=== PATIENT | male | born 1965 | race Caucasian/White ===

== ENCOUNTER 2018-01-09 13:35 | Observation (INO) ==
[2018-01-09] MEDS ORDERED: Labetalol HCl Inj 100 MG/20 ML Vial IV.PUSH ONE (14:12)
--- NOTE | 2018-01-09 14:14 | ED ---
HPI General Chief complaint: Dizziness Stated complaint: Hypertension Time Seen by Provider: 01/09/18 14:03 History of Present Illness HPI narrative: 52-year-old male is brought to the ED by EMS for evaluation of dizziness and elevated blood pressure. Patient states about 2 hours ago he was at home and had a random sharp pain in his right mid abdomen. States this pain lasted for only 1-2 seconds and resolved. States that immediately after the pain he started having dizziness. States that he feels lightheaded. States that he called EMS due to this lightheadedness and when they came to pick him up his blood pressure was noted to be 200s over 100s. States that he has had this happen to him once in the past many years ago. States that he has been told he has high blood pressure however does not follow-up with doctors and does not take anything for his blood pressure. He denies any headache, vision changes, blurred vision, numbness or tingling, weakness, chest pain, shortness of breath, nausea, vomiting. No other complaints. Related Data Home Medications Medication Instructions Recorded Confirmed No Known Home Medications 01/09/18 01/09/18 Allergies Allergy/AdvReac Type Severity Reaction Status Date / Time No Known Allergies Allergy Verified 01/09/18 14:08 Review of Systems ROS: all other systems reviewed are negative PMFSH Social History Social History Substance History: Active Abuse Second Hand Smoke Exposure: Yes Smoking Status: Current every day smoker Tobacco Type: Cigarettes How Often Do You Have a Drink Containing Alcohol: 4 or more times a week Recent Travel in [facility] within the Last 8 Weeks: No Recent Out of Country Travel within the Last 8 Weeks: No Substance Abuse Detail Marijuana: Substance Use Status: Active Route Used Substance Abuse: Inhalation Immunization History Tetanus Immunization: >5 Years Exam Narrative Exam Narrative: GENERAL: Well-nourished and well-developed pleasant patient in no acute distress who is nontoxic appearing. SKIN: Warm and dry. HEAD: Normocephalic and atraumatic. EYES: No injection, drainage, or hyphema noted. PERRLA. EOMI. ENT: No nasal drainage noted. Oropharynx is clear. NECK: Supple and the trachea is midline. CARDIOVASCULAR: Regular rate and rhythm. RESPIRATORY: Breath sounds are equal bilaterally with no accessory muscle use, wheezing, rhonchi, or crackles. GASTROINTESTINAL: Abdomen is soft, non-tender, and nondistended. MUSCULOSKELETAL: No obvious deformities, swelling, cyanosis, or ecchymosis is present throughout the upper and lower extremities. Patient has full range of motion without any signs of neurovascular compromise. Distal pulses are 2+ throughout. Strength 5/5 upper and lower extremities equal bilaterally. NEUROLOGICAL: Awake, alert, and oriented. Normal speech and gait. Normal heel to fisher test. Normal finger to nose test. Cranial nerves are grossly intact. Course Initial Documented Vital Signs Temperature 98.3 F 01/09/18 13:51 Pulse Rate 76 01/09/18 13:51 Respiratory Rate 18 01/09/18 13:51 Blood Pressure 203/116 H 01/09/18 13:51 Pulse Oximetry 98 01/09/18 13:51 Last Documented Vital Signs Temperature 98.3 F 01/09/18 13:51 Pulse Rate 71 01/09/18 18:30 Respiratory Rate 18 01/09/18 18:30 Blood Pressure 185/115 H 01/09/18 18:30 Pulse Oximetry 98 01/09/18 18:30 Medical Decision Making LEONOR Attestation LEONOR supervised visit: Yes Attestation: I, Dr. Sanders, have reviewed the advance practice practitioner's documentation and am in agreement, met with the patient face to face, made the diagnosis, and the medical decision making was done by me. *My assessment and Findings: Patient with hypertensive urgency, initial blood pressure was 203/116 with complaints of dizziness. Patient was symptomatic when he arrived to the emergency room, patient was given a dose of 10 mg of iv labetolol MDM Narrative Medical decision making narrative: 52-year-old male presents to the emergency department for evaluation of dizziness and high blood pressure. Patient is afebrile. His blood pressure is elevated 203/116. No focal neurologic deficits. IV access is obtained, labs been drawn and sent. Patient is placed in cardiac telemetry and pulse oximetry monitoring. Patient administered labetalol 10 mg IV. CBC is unremarkable. CMP is unremarkable. Troponin is less than 0.02. Chest x-ray is negative. Head CT is negative for any acute abnormalities. Patient reassessed and still having slight dizziness now with headache. Blood pressure has come down only to 176/110. Patient will be kept in observation for hypertensive urgency. Discussed with Dr. Hammer [facility] who accepts patient for admission. Medical Screen Exam Complete: Yes Emergency Medical Condition: Yes Differential Diagnosis Differential Diagnosis: Hypertensive urgency versus electrolyte abnormality versus intracranial hemorrhage Lab Data Result diagrams: 01/09/18 14:20 01/09/18 14:20 Lab Results 01/09/18 01/09/18 01/09/18 Range/Units 14:19 14:20 14:20 WBC 8.2 (4.0-11.0) th/mm3 RBC 4.92 (4.50-5.90) mil/mm3 Hgb 16.3 (13.0-17.0) gm/dL Hct 45.8 (39.0-51.0) % MCV 93.0 (80.0-100.0) fL MCH 33.1 (27.0-34.0) pg MCHC 35.6 (32.0-36.0) % RDW 13.0 (11.6-17.2) % Plt Count 233 (150-450) th/mm3 MPV 8.7 (7.0-11.0) fL Neut % (Auto) 65.2 (16.0-70.0) % Lymph % (Auto) 22.4 (9.0-44.0) % [place] % (Auto) 9.8 H (0.0-8.0) % Eos % (Auto) 2.1 (0.0-4.0) % Baso % (Auto) 0.5 (0.0-2.0) % Neut # (Auto) 5.3 (1.8-7.7) th/mm3 Lymph # (Auto) 1.8 (1.0-4.8) th/mm3 [place] # (Auto) 0.8 (0.0-0.9) th/mm3 Eos # (Auto) 0.2 (0.0-0.4) th/mm3 Baso # (Auto) 0.0 (0.0-0.2) th/mm3 WBC Differential . Differential Comment Auto diff final Sodium 143 (136-145) meq/L Potassium 4.4 (3.5-5.1) meq/L Chloride 110 H (98-107) meq/L Carbon Dioxide 24.8 (21.0-32.0) meq/L Anion Gap 8 (5-15) meq/L BUN 10 (7-18) mg/dL Creatinine 0.92 (0.60-1.30) mg/dL Estimated GFR 86 L (>89) mL/min POC Glucose 112 H (68-110) mg/dl Random Glucose 106 (74-106) mg/dL Calcium 8.6 (8.5-10.1) mg/dL Total Bilirubin 0.5 (0.2-1.0) mg/dL AST 27 (15-37) U/L ALT 44 (12-78) U/L Alkaline Phosphatase 58 (45-117) U/L Troponin I Less than 0.02 L (0.02-0.05) ng/mL Total Protein 7.8 (6.4-8.2) g/dL Albumin 4.1 (3.4-5.0) g/dL Urine Color (Yellw/Straw) Urine Clarity (Clear) Urine pH (5.0-8.5) Ur Specific [place] (1.002-1.035) Urine Protein (Neg-Trace) mg/dL Urine Glucose (UA) (Negative) mg/dL Urine Ketones (Negative) mg/dL Urine Occult Blood (Negative) Urine Nitrate (Negative) Urine Bilirubin (Negative) Urine Urobilinogen (Less than 2) mg/dL Ur Leukocyte Esterase (Negative) Ur Squamous Epith Cells (0-5) /hpf Micro UA Comment Ur Microscopic Review Urine Culture Comments Urine Opiates Screen (Neg) Ur Barbiturates Screen (Neg) Ur Amphetamines Screen (Neg) U Benzodiazepines Scrn (Neg) Urine Cocaine Screen (Neg) U Cannabinoids Screen (Neg) 01/09/18 01/09/18 Range/Units 17:00 17:00 WBC (4.0-11.0) th/mm3 RBC (4.50-5.90) mil/mm3 Hgb (13.0-17.0) gm/dL Hct (39.0-51.0) % MCV (80.0-100.0) fL MCH (27.0-34.0) pg MCHC (32.0-36.0) % RDW (11.6-17.2) % Plt Count (150-450) th/mm3 MPV (7.0-11.0) fL Neut % (Auto) (16.0-70.0) % Lymph % (Auto) (9.0-44.0) % [place] % (Auto) (0.0-8.0) % Eos % (Auto) (0.0-4.0) % Baso % (Auto) (0.0-2.0) % Neut # (Auto) (1.8-7.7) th/mm3 Lymph # (Auto) (1.0-4.8) th/mm3 [place] # (Auto) (0.0-0.9) th/mm3 Eos # (Auto) (0.0-0.4) th/mm3 Baso # (Auto) (0.0-0.2) th/mm3 WBC Differential Differential Comment Sodium (136-145) meq/L Potassium (3.5-5.1) meq/L Chloride (98-107) meq/L Carbon Dioxide (21.0-32.0) meq/L Anion Gap (5-15) meq/L BUN (7-18) mg/dL Creatinine (0.60-1.30) mg/dL Estimated GFR (>89) mL/min POC Glucose (68-110) mg/dl Random Glucose (74-106) mg/dL Calcium (8.5-10.1) mg/dL Total Bilirubin (0.2-1.0) mg/dL AST (15-37) U/L ALT (12-78) U/L Alkaline Phosphatase (45-117) U/L Troponin I (0.02-0.05) ng/mL Total Protein (6.4-8.2) g/dL Albumin (3.4-5.0) g/dL Urine Color Yellow (Yellw/Straw) Urine Clarity Clear (Clear) Urine pH 7.0 (5.0-8.5) Ur Specific [place] 1.015 (1.002-1.035) Urine Protein Negative (Neg-Trace) mg/dL Urine Glucose (UA) Negative (Negative) mg/dL Urine Ketones Negative (Negative) mg/dL Urine Occult Blood Negative (Negative) Urine Nitrate Negative (Negative) Urine Bilirubin Negative (Negative) Urine Urobilinogen 2.0 H (Less than 2) mg/dL Ur Leukocyte Esterase Negative (Negative) Ur Squamous Epith Cells <1 (0-5) /hpf Micro UA Comment Culture not ind Ur Microscopic Review Not Reportable Urine Culture Comments Culture not ind Urine Opiates Screen Neg (Neg) Ur Barbiturates Screen Neg (Neg) Ur Amphetamines Screen Neg (Neg) U Benzodiazepines Scrn Neg (Neg) Urine Cocaine Screen Neg (Neg) U Cannabinoids Screen Pos H (Neg) Imaging Data Radiologist's impression: Chest X-Ray 01/09/18 14:12 CONCLUSION: No acute cardiopulmonary disease. Head CT 01/09/18 14:12 CONCLUSION: 1. No acute hemorrhage or mass effect. 2. Mild mucosal thickening in the right maxillary sinus. . Discharge Plan Discharge Disposition Patient Disposition: 30 Still Patient Discharge Details Diagnosis: Hypertensive urgency, Dizziness Physicians Team ED Provider: Shellie Sanders ED Midlevel Provider: Purnima Kim Primary Care Provider: UNKNOWN, Attending Provider: Jarad Hammer Status ED Status: Admitted Observation Patient
[2018-01-09 14:29] LABS: Baso % (Auto) 0.5 % (0.0-2.0); Eos # (Auto) 0.2 th/mm3 (0.0-0.4); Eos % (Auto) 2.1 % (0.0-4.0); Hematocrit 45.8 % (39.0-51.0); Hemoglobin 16.3 gm/dL (13.0-17.0); Lymph # (Auto) 1.8 th/mm3 (1.0-4.8); Lymph % (Auto) 22.4 % (9.0-44.0); Mean Corpuscular HGB Conc 35.6 % (32.0-36.0); Mean Corpuscular Hemoglobin 33.1 pg (27.0-34.0); Mean Platelet Volume 8.7 fL (7.0-11.0); Mono # (Auto) 0.8 th/mm3 (0.0-0.9); Mono % (Auto) 9.8 % (0.0-8.0); Neut # (Auto) 5.3 th/mm3 (1.8-7.7); Neut % (Auto) 65.2 % (16.0-70.0); Platelet Count 233 th/mm3 (150-450); Red Blood Count 4.92 mil/mm3 (4.50-5.90); White Blood Count 8.2 th/mm3 (4.0-11.0)
[2018-01-09 14:43] LABS: Alanine Aminotransferase 44 U/L (12-78); Albumin 4.1 g/dL (3.4-5.0); Anion Gap 8 meq/L (5-15); Aspartate Aminotransferase 27 U/L (15-37); Blood Urea Nitrogen 10 mg/dL (7-18); Calcium 8.6 mg/dL (8.5-10.1); Carbon Dioxide 24.8 meq/L (21.0-32.0); Chloride 110 meq/L (98-107); Glomerular Filtration Rate 86 mL/min (>89); Glucose,Random 106 mg/dL (74-106); Potassium 4.4 meq/L (3.5-5.1); Sodium 143 meq/L (136-145)
[2018-01-09 14:47] LABS: Alkaline Phosphatase 58 U/L (45-117); Total Protein 7.8 g/dL (6.4-8.2)
--- NOTE | 2018-01-09 15:01 | CT ---
EXAM DATE: 01/09/2018 2:57 PM EST AGE/SEX: 52 years / Male INDICATIONS: Dizziness and elevated blood pressure CLINICAL DATA: This is the patient's initial encounter. Patient reports that signs and symptoms have been present for 1 day and indicates a pain score of 0/10. MEDICAL/SURGICAL HISTORY: Hypertension. None. RADIATION DOSE: 35.72 CTDI (mGy) COMPARISON: No prior exams available for comparison. TECHNIQUE: CT of the head without contrast. Using automated exposure control and adjustment of the mA and/or kV according to patient size, radiation dose was kept as low as reasonably achievable to ob tain optimal diagnostic quality images. DICOM format image data is available electronically for revi ew and comparison. FINDINGS: Cerebrum: The ventricles are normal for age. No evidence of midline shift, mass lesion, hemorrhage or acute infarction. No extraaxial fluid collections are seen. Posterior Fossa: The cerebellum and brainstem are intact. The 4th ventricle is midline. The cerebe llopontine angle is unremarkable. Extracranial: The visualized portion of the orbits is intact. There is mild mucosal thickening in th e right maxillary sinus. Skull: The calvaria is intact. No evidence of skull fracture. CONCLUSION: 1. No acute hemorrhage or mass effect. 2. Mild mucosal thickening in the right maxillary sinus. . Electronically signed by: Brian Mcgrath MD 01/09/2018 3:00 PM EST
--- NOTE | 2018-01-09 15:28 | XR ---
EXAM DATE: 01/09/2018 3:07 PM EST AGE/SEX: 52 years / Male INDICATIONS: Short of breath and weakness. CLINICAL DATA: This is the patient's initial encounter. Patient reports that signs and symptoms have been present for 1 day and indicates a pain score of 0/10. MEDICAL/SURGICAL HISTORY: . Hypertension. None. COMPARISON: No prior exams available for comparison. FINDINGS: The lungs are clear without infiltrate, nodule, or mass. There is no appreciable pleural effusion for technique. Heart and mediastinum are unremarkable. CONCLUSION: No acute cardiopulmonary disease. Electronically signed by: Geovanny Rubalcava MD 01/09/2018 3:27 PM EST
[2018-01-09] MEDS ORDERED: amLODIPine 5 MG Tablet PO ONE (17:10)
[2018-01-09 17:51] LABS: Bilirubin,Urine Negative (Negative); Clarity,Urine Clear (Clear); Color,Urine Yellow (Yellw/Straw); Glucose,Urine (UA) Negative (Negative); Leukocyte Esterase,Urine Negative (Negative); Nitrite,Urine Negative (Negative); Specific Gravity,Urine 1.015 (1.002-1.035); Squamous Epithelial Cell,Urine <1 /hpf (0-5)
[2018-01-09 18:01] LABS: Amphetamine Screen,Urine Neg (Neg); Barbiturate Screen,Urine Neg (Neg); Cannabinoid Screen,Urine Pos (Neg); Cocaine Screen,Urine Neg (Neg)
[2018-01-09 18:25] LABS: Opiate Screen,Urine Neg (Neg)
--- NOTE | 2018-01-09 18:28 | P.HP ---
History of Present Illness Primary Care Physician: UNKNOWN History of Present Illness: 52-year-old white male being admitted for hypertensive emergency. Patient was in his usual state of health until sometime earlier today shortly after waking up for the day in the early afternoon he began experiencing lightheadedness in a sitting position. To help deal with the symptoms he tried to get up and walk around and go outside but the lightheadedness persisted. He denies having nausea vomiting chest pain shortness of breath. He says he felt like he was going to "pass out." Thus he decided come to the emergency department and ambulance. The emergency department his initial 203/116. EKG which I apparently reviewed shows overall normal sinus rhythm with no concerning findings suggestive of ischemia or infarction. Blood work was otherwise unremarkable. He was given IV labetalol and p.o. amlodipine. Systolic blood pressure improved to the 170s. Patient says that he has been diagnosed with hypertension in the past but never followed up with a physician due to lack of symptomatology. Upon my evaluation the patient says his dizziness has resolved. Review of Systems All other systems reviewed negative except as stated in HPI PMFSH - History History Provided By: Patient - Medical History Medical History: Medical History (Last Reviewed 01/09/18 @ 18:31 by Jarad Hammer MD) Hypertension - Surgical History Surgical History: Surgical History (Last Reviewed 01/09/18 @ 18:31 by Jarad Hammer MD) No history of previous surgery - Family History Family History: Family History (Last Reviewed 01/09/18 @ 18:32 by Jarad Hammer MD) Other Diabetes - Social History I have reviewed the patient's Social History: Yes - Tobacco History Second Hand Smoke Exposure: Yes Tobacco Use In Past 30 Days: Yes Smoking Status: Current every day smoker Tobacco Type: Cigarettes - Alcohol History How Often Do You Have a Drink Containing Alcohol: 4 or more times a week - Substance Use History Substance History: Active Abuse - Substance Use Type Marijuana Status: Active Route Used: Inhalation - Travel History Recent Travel in the [place] Within the Last 8 Weeks: No Recent Travel Out of the Country Within the Last 8 Weeks: No - Immunization History Tetanus Immunization: >5 Years Medications and Allergies Active Medications: Active Medications Lisinopril (Prinivil) 5 mg PO DAILY JAVIER Nifedipine (Procardia) 10 mg PO QID JAVIER Sodium Chloride (Ns Flush) 2 ml IV.FLUSH PRN PRN PRN Reason: FLUSH AFTER USING IV ACCESS Last Admin: 01/09/18 14:22 Dose: 2 ml Sodium Chloride (Ns Flush) 2 ml IV.FLUSH BID JAVIER Sodium Chloride (Ns Flush) 2 ml IV.FLUSH PRN PRN PRN Reason: FLUSH AFTER USING IV ACCESS Allergies Allergy/AdvReac Type Severity Reaction Status Date / Time No Known Allergies Allergy Verified 01/09/18 14:08 Home Medications Medication Instructions Recorded Confirmed Type No Known Home Medications 01/09/18 01/09/18 History Exam Vital signs: Vital Signs 01/09/18 13:51 01/09/18 14:40 01/09/18 15:10 Temperature 98.3 F Pulse Rate 76 73 75 Respiratory Rate 18 16 18 Blood Pressure 203/116 H 165/115 H 173/103 H Pulse Oximetry 98 95 94 L 01/09/18 17:00 Temperature Pulse Rate 71 Respiratory Rate 18 Blood Pressure 176/110 H Pulse Oximetry 96 Intake & Output 01/08/18 01/09/18 01/09/18 18:59 06:59 18:59 Weight 76.204 kg Narrative: VS: afebrile GENERAL: Middle-aged white male well-nourished, no acute distress SKIN: Warm and dry. EYES: Pupils equal and round. No scleral icterus. No injection or drainage. ENT: No nasal bleeding or discharge. Mucous membranes pink and moist. CARDIOVASCULAR: Regular rate and rhythm. no murmurs RESPIRATORY: No accessory muscle use. Clear to auscultation. Breath sounds equal bilaterally. GASTROINTESTINAL: Abdomen soft, non-tender, nondistended. Extremities: No clubbing, cyanosis, or edema. No obvious deformities. MUSCULOSKELETAL: adequate muscle bulk and tone for age and habitus NEUROLOGICAL: Awake and alert. No obvious cranial nerve deficits. No facial droop nor slurred speech noted. Intact elevation of bilateral shoulders. 5/5 proximal upper and lower extremity strength grossly bilaterally. PSYCHIATRIC: Appropriate mood and affect; insight and judgment normal. Results - Labs CBC & Chem 7: 01/09/18 14:20 01/09/18 14:20 Labs: Laboratory Results - last 24 hr 01/09/18 01/09/18 01/09/18 14:19 14:20 14:20 WBC 8.2 RBC 4.92 Hgb 16.3 Hct 45.8 MCV 93.0 MCH 33.1 MCHC 35.6 RDW 13.0 Plt Count 233 MPV 8.7 Neut % (Auto) 65.2 Lymph % (Auto) 22.4 [place] % (Auto) 9.8 H Eos % (Auto) 2.1 Baso % (Auto) 0.5 Neut # (Auto) 5.3 Lymph # (Auto) 1.8 [place] # (Auto) 0.8 Eos # (Auto) 0.2 Baso # (Auto) 0.0 WBC Differential . Differential Comment Auto diff final Sodium 143 Potassium 4.4 Chloride 110 H Carbon Dioxide 24.8 Anion Gap 8 BUN 10 Creatinine 0.92 Estimated GFR 86 L POC Glucose 112 H Random Glucose 106 Calcium 8.6 Total Bilirubin 0.5 AST 27 ALT 44 Alkaline Phosphatase 58 Troponin I Less than 0.02 L Total Protein 7.8 Albumin 4.1 Urine Color Urine Clarity Urine pH Ur Specific [place] Urine Protein Urine Glucose (UA) Urine Ketones Urine Occult Blood Urine Nitrate Urine Bilirubin Urine Urobilinogen Ur Leukocyte Esterase Ur Squamous Epith Cells Micro UA Comment Ur Microscopic Review Urine Culture Comments Urine Opiates Screen Ur Barbiturates Screen Ur Amphetamines Screen U Benzodiazepines Scrn Urine Cocaine Screen U Cannabinoids Screen 01/09/18 01/09/18 17:00 17:00 WBC RBC Hgb Hct MCV MCH MCHC RDW Plt Count MPV Neut % (Auto) Lymph % (Auto) [place] % (Auto) Eos % (Auto) Baso % (Auto) Neut # (Auto) Lymph # (Auto) [place] # (Auto) Eos # (Auto) Baso # (Auto) WBC Differential Differential Comment Sodium Potassium Chloride Carbon Dioxide Anion Gap BUN Creatinine Estimated GFR POC Glucose Random Glucose Calcium Total Bilirubin AST ALT Alkaline Phosphatase Troponin I Total Protein Albumin Urine Color Yellow Urine Clarity Clear Urine pH 7.0 Ur Specific [place] 1.015 Urine Protein Negative Urine Glucose (UA) Negative Urine Ketones Negative Urine Occult Blood Negative Urine Nitrate Negative Urine Bilirubin Negative Urine Urobilinogen 2.0 H Ur Leukocyte Esterase Negative Ur Squamous Epith Cells <1 Micro UA Comment Culture not ind Ur Microscopic Review Not Reportable Urine Culture Comments Culture not ind Urine Opiates Screen Neg Ur Barbiturates Screen Neg Ur Amphetamines Screen Neg U Benzodiazepines Scrn Neg Urine Cocaine Screen Neg U Cannabinoids Screen Pos H - Imaging Impressions Chest X-Ray 01/09/18 14:12 CONCLUSION: No acute cardiopulmonary disease. Head CT 01/09/18 14:12 CONCLUSION: 1. No acute hemorrhage or mass effect. 2. Mild mucosal thickening in the right maxillary sinus. . Caprini VTE Risk Assessment Caprini VTE Risk Assessment: No/Low Risk (score <= 1) Caprini Risk Assessment Model: Point Value = 1 Point Value = 2 Point Value = 3 Point Value = 5 Age 41-60 Minor surgery BMI > 25 kg/m2 Swollen legs Varicose veins or History of unexplained or recurrent spontaneous Oral contraceptives or hormone replacement Sepsis (< 1 month) Serious lung disease, including pneumonia (< 1 month) Abnormal pulmonary function Acute myocardial infarction Congestive heart failure (< 1 month) History of inflammatory bowel disease Medical patient at bed rest Age 61-74 Arthroscopic surgery Major open surgery (> 45 min) Laparoscopic surgery (> 45 min) Malignancy Confined to bed (> 72 hours) Immobilizing plaster cast Central venous access Age >= 75 History of VTE Family history of VTE Factor V Leiden Prothrombin [id number] Lupus anticoagulant Anticardiolipin antibodies Elevated serum homocysteine Heparin-induced thrombocytopenia Other congenital or acquired thrombophilia Stroke (< 1 month) Elective arthroplasty Hip, pelvis, or leg fracture Acute spinal cord injury (< 1 month) Prophylaxis Regimen: Total Risk Factor Score Risk Level Prophylaxis Regimen 0-1 Low Early ambulation 2 Moderate Order ONE of the following: *Sequential Compression Device (SCD) *Heparin 5000 units SQ BID 3-4 Higher Order ONE of the following medications: *Heparin 5000 units SQ TID *Enoxaparin/Lovenox 40 mg SQ daily (WT < 150 kg, CrCl > 30 mL/min) *Enoxaparin/Lovenox 30 mg SQ daily (WT < 150 kg, CrCl > 10-29 mL/min) *Enoxaparin/Lovenox 30 mg SQ BID (WT < 150 kg, CrCl > 30 mL/min) AND/OR *Sequential Compression Device (SCD) 5 or more Highest Order ONE of the following medications: *Heparin 5000 units SQ TID (Preferred with Epidurals) *Enoxaparin/Lovenox 40 mg SQ daily (WT < 150 kg, CrCl > 30 mL/min) *Enoxaparin/Lovenox 30 mg SQ daily (WT < 150 kg, CrCl > 10-29 mL/min) *Enoxaparin/Lovenox 30 mg SQ BID (WT < 150 kg, CrCl > 30 mL/min) AND *Sequential Compression Device (SCD) Assessment and Plan - Plan 53-year-old white male admitted for hypertensive emergency Hypertensive emergency -EKG unremarkable Clinically improving already, will start oral lisinopril 5 mg daily and short acting nifedipine, will order Vasotec as needed -Can be discharged tomorrow morning if remains asymptomatic -Patient counseled extensively on the importance of blood pressure control, educated on the risks of devastating diseases/complications including stroke. SCDs
[2018-01-09] MEDS: NIFEdipine 10 MG Capsule PO SCH ×2 (18:44→22:20)
[2018-01-09] MEDS: Lisinopril 5 MG Tablet PO SCH (18:45)
[2018-01-10 03:54] VITALS: O2SAT 96
[2018-01-10 07:26] VITALS: BP 109/70; PULSE 67; RESP 18; TEMP 98.1
--- NOTE | 2018-01-10 10:22 | P.PN ---
Subjective Interval history: Patient is seen sitting in bed. He tells me that he feels fine and would like to go home. No further episodes of dizziness. No chest pain or shortness of breath. No nausea vomiting or diarrhea. He acknowledges that he does not have primary care and has never treated his known hypertension. Discussed the importance of treating high blood pressure in order to protect kidney and heart function and prevent stroke. Discussed available community resources including [facility] . Encourage smoking cessation. Patient indicates understanding. Physical Exam Vital signs: Vital Signs 01/09/18 13:51 01/09/18 14:40 01/09/18 15:10 Temperature 98.3 F Pulse Rate 76 73 75 Respiratory Rate 18 16 18 Blood Pressure 203/116 H 165/115 H 173/103 H Pulse Oximetry 98 95 94 L 01/09/18 17:00 01/09/18 18:30 01/09/18 19:14 Temperature Pulse Rate 71 71 96 H Respiratory Rate 18 18 18 Blood Pressure 176/110 H 185/115 H 139/83 Pulse Oximetry 96 98 01/09/18 20:00 01/10/18 00:00 01/10/18 03:52 Temperature 98.9 F 98.4 F 98.2 F Pulse Rate 84 73 75 Respiratory Rate 18 20 20 Blood Pressure 137/91 H 123/76 112/69 Pulse Oximetry 94 L 94 L 96 01/10/18 07:23 Temperature 98.1 F Pulse Rate 67 Respiratory Rate 18 Blood Pressure 109/70 Pulse Oximetry 96 Intake & Output 01/09/18 01/10/18 01/10/18 18:59 06:59 18:59 Intake Total 960 / 960 Balance 960 / 960 Weight 76.204 kg 76.204 kg Intake: Oral 960 / 960 Other: Weight On Admission 76.204 kg Narrative: GENERAL: Well-nourished, well-developed adult male in no obvious distress. SKIN: Warm and dry. HEAD: Atraumatic. Normocephalic. CARDIOVASCULAR: Regular rate and rhythm. RESPIRATORY: No accessory muscle use. Clear to auscultation. Breath sounds equal bilaterally. GASTROINTESTINAL: Abdomen soft, non-tender, non-distended. Positive bowel sounds. MUSCULOSKELETAL: Extremities without clubbing, cyanosis, or edema. No obvious deformities. NEUROLOGICAL: Awake and alert. No obvious cranial nerve deficits. Motor grossly within normal limits. Normal speech. PSYCHIATRIC: Appropriate mood and affect; insight and judgment good. Results - Labs CBC & Chem 7: 01/09/18 14:20 01/09/18 14:20 Laboratory Results - last 24 hr 01/09/18 01/09/18 01/09/18 14:19 14:20 14:20 WBC 8.2 RBC 4.92 Hgb 16.3 Hct 45.8 MCV 93.0 MCH 33.1 MCHC 35.6 RDW 13.0 Plt Count 233 MPV 8.7 Neut % (Auto) 65.2 Lymph % (Auto) 22.4 [place] % (Auto) 9.8 H Eos % (Auto) 2.1 Baso % (Auto) 0.5 Neut # (Auto) 5.3 Lymph # (Auto) 1.8 [place] # (Auto) 0.8 Eos # (Auto) 0.2 Baso # (Auto) 0.0 WBC Differential . Differential Comment Auto diff final Sodium 143 Potassium 4.4 Chloride 110 H Carbon Dioxide 24.8 Anion Gap 8 BUN 10 Creatinine 0.92 Estimated GFR 86 L POC Glucose 112 H Random Glucose 106 Calcium 8.6 Total Bilirubin 0.5 AST 27 ALT 44 Alkaline Phosphatase 58 Troponin I Less than 0.02 L Total Protein 7.8 Albumin 4.1 Urine Color Urine Clarity Urine pH Ur Specific [place] Urine Protein Urine Glucose (UA) Urine Ketones Urine Occult Blood Urine Nitrate Urine Bilirubin Urine Urobilinogen Ur Leukocyte Esterase Ur Squamous Epith Cells Micro UA Comment Ur Microscopic Review Urine Culture Comments Urine Opiates Screen Ur Barbiturates Screen Ur Amphetamines Screen U Benzodiazepines Scrn Urine Cocaine Screen U Cannabinoids Screen 01/09/18 01/09/18 17:00 17:00 WBC RBC Hgb Hct MCV MCH MCHC RDW Plt Count MPV Neut % (Auto) Lymph % (Auto) [place] % (Auto) Eos % (Auto) Baso % (Auto) Neut # (Auto) Lymph # (Auto) [place] # (Auto) Eos # (Auto) Baso # (Auto) WBC Differential Differential Comment Sodium Potassium Chloride Carbon Dioxide Anion Gap BUN Creatinine Estimated GFR POC Glucose Random Glucose Calcium Total Bilirubin AST ALT Alkaline Phosphatase Troponin I Total Protein Albumin Urine Color Yellow Urine Clarity Clear Urine pH 7.0 Ur Specific [place] 1.015 Urine Protein Negative Urine Glucose (UA) Negative Urine Ketones Negative Urine Occult Blood Negative Urine Nitrate Negative Urine Bilirubin Negative Urine Urobilinogen 2.0 H Ur Leukocyte Esterase Negative Ur Squamous Epith Cells <1 Micro UA Comment Culture not ind Ur Microscopic Review Not Reportable Urine Culture Comments Culture not ind Urine Opiates Screen Neg Ur Barbiturates Screen Neg Ur Amphetamines Screen Neg U Benzodiazepines Scrn Neg Urine Cocaine Screen Neg U Cannabinoids Screen Pos H - Imaging Impressions Chest X-Ray 01/09/18 14:12 CONCLUSION: No acute cardiopulmonary disease. Head CT 01/09/18 14:12 CONCLUSION: 1. No acute hemorrhage or mass effect. 2. Mild mucosal thickening in the right maxillary sinus. . Assessment and Plan - Plan 53-year-old white male admitted for hypertensive emergency Hypertensive emergency -EKG unremarkable Clinically improving already, started oral lisinopril 5 mg daily and short acting nifedipine- good response. Will change to lisinopril and Norvasc on discharge due to lack of financial resources. -Patient counseled extensively on the importance of blood pressure control, educated on the risks of devastating diseases/complications including stroke. SCDs
--- NOTE | 2018-01-10 10:31 | P.DS ---
Date of admission: 01/09/18 18:17 Primary care physician: UNKNOWN Attending physician on discharge: Rufino Johnson Anticipated date of discharge: 01/10/18 Brief History from admission: 52-year-old white male being admitted for hypertensive emergency. Patient was in his usual state of health until sometime earlier today shortly after waking up for the day in the early afternoon he began experiencing lightheadedness in a sitting position. To help deal with the symptoms he tried to get up and walk around and go outside but the lightheadedness persisted. He denies having nausea vomiting chest pain shortness of breath. He says he felt like he was going to "pass out." Thus he decided come to the emergency department and ambulance. The emergency department his initial 203/116. EKG which I apparently reviewed shows overall normal sinus rhythm with no concerning findings suggestive of ischemia or infarction. Blood work was otherwise unremarkable. He was given IV labetalol and p.o. amlodipine. Systolic blood pressure improved to the 170s. Patient says that he has been diagnosed with hypertension in the past but never followed up with a physician due to lack of symptomatology. Upon my evaluation the patient says his dizziness has resolved. DS: Diagnosis - Discharge Diagnosis (1) HTN, goal below 140/80 Status: Chronic (2) Dizziness Status: Resolved (3) Hypertensive urgency Status: Resolved DS: Medications - Discharge Medications Prescriptions: amlodipine [Norvasc] 5 mg PO DAILY #90 tab lisinopril 5 mg PO DAILY #90 tab DS: Summary Hospital Course: 53-year-old white male admitted for hypertensive emergency Hypertensive emergency -EKG unremarkable; labs generally WNL Clinically improving already, started oral lisinopril 5 mg daily and short acting nifedipine- good response. Will change to lisinopril and Norvasc on discharge due to lack of financial resources. -Patient counseled extensively on the importance of blood pressure control, educated on the risks of devastating diseases/complications including stroke. - Time Spent with Patient Total time spent providing and/or coordinating discharge services: Less than 30 minutes - Quality: VTE Deep Vein Thrombosis/Pulmonary Embolism Present on Admission: No Exam Vital signs: Vital Signs 01/09/18 13:51 01/09/18 14:40 01/09/18 15:10 Temperature 98.3 F Pulse Rate 76 73 75 Respiratory Rate 18 16 18 Blood Pressure 203/116 H 165/115 H 173/103 H Pulse Oximetry 98 95 94 L 01/09/18 17:00 01/09/18 18:30 01/09/18 19:14 Temperature Pulse Rate 71 71 96 H Respiratory Rate 18 18 18 Blood Pressure 176/110 H 185/115 H 139/83 Pulse Oximetry 96 98 01/09/18 20:00 01/10/18 00:00 01/10/18 03:52 Temperature 98.9 F 98.4 F 98.2 F Pulse Rate 84 73 75 Respiratory Rate 18 20 20 Blood Pressure 137/91 H 123/76 112/69 Pulse Oximetry 94 L 94 L 96 01/10/18 07:23 Temperature 98.1 F Pulse Rate 67 Respiratory Rate 18 Blood Pressure 109/70 Pulse Oximetry 96 Intake & Output 01/09/18 01/10/18 01/10/18 18:59 06:59 18:59 Intake Total 960 / 960 Balance 960 / 960 Weight 76.204 kg 76.204 kg Intake: Oral 960 / 960 Other: Weight On Admission 76.204 kg Narrative: GENERAL: Well-nourished, well-developed adult male in no obvious distress. SKIN: Warm and dry. HEAD: Atraumatic. Normocephalic. CARDIOVASCULAR: Regular rate and rhythm. RESPIRATORY: No accessory muscle use. Clear to auscultation. Breath sounds equal bilaterally. GASTROINTESTINAL: Abdomen soft, non-tender, non-distended. Positive bowel sounds. MUSCULOSKELETAL: Extremities without clubbing, cyanosis, or edema. No obvious deformities. NEUROLOGICAL: Awake and alert. No obvious cranial nerve deficits. Motor grossly within normal limits. Normal speech. PSYCHIATRIC: Appropriate mood and affect; insight and judgment good. Results Procedures completed during hospitalization: none Labs on day of discharge: Labs from last 24 hours 01/09/18 01/09/18 01/09/18 17:00 17:00 14:20 WBC RBC Hgb Hct MCV MCH MCHC RDW Plt Count MPV Neut % (Auto) Lymph % (Auto) [place] % (Auto) Eos % (Auto) Baso % (Auto) Neut # (Auto) Lymph # (Auto) [place] # (Auto) Eos # (Auto) Baso # (Auto) WBC Differential Differential Comment Sodium 143 Potassium 4.4 Chloride 110 H Carbon Dioxide 24.8 Anion Gap 8 BUN 10 Creatinine 0.92 Estimated GFR 86 L POC Glucose Random Glucose 106 Calcium 8.6 Total Bilirubin 0.5 AST 27 ALT 44 Alkaline Phosphatase 58 Troponin I Less than 0.02 L Total Protein 7.8 Albumin 4.1 Urine Color Yellow Urine Clarity Clear Urine pH 7.0 Ur Specific [place] 1.015 Urine Protein Negative Urine Glucose (UA) Negative Urine Ketones Negative Urine Occult Blood Negative Urine Nitrate Negative Urine Bilirubin Negative Urine Urobilinogen 2.0 H Ur Leukocyte Esterase Negative Ur Squamous Epith Cells <1 Micro UA Comment Culture not ind Ur Microscopic Review Not Reportable Urine Culture Comments Culture not ind Urine Opiates Screen Neg Ur Barbiturates Screen Neg Ur Amphetamines Screen Neg U Benzodiazepines Scrn Neg Urine Cocaine Screen Neg U Cannabinoids Screen Pos H 01/09/18 01/09/18 14:20 14:19 WBC 8.2 RBC 4.92 Hgb 16.3 Hct 45.8 MCV 93.0 MCH 33.1 MCHC 35.6 RDW 13.0 Plt Count 233 MPV 8.7 Neut % (Auto) 65.2 Lymph % (Auto) 22.4 [place] % (Auto) 9.8 H Eos % (Auto) 2.1 Baso % (Auto) 0.5 Neut # (Auto) 5.3 Lymph # (Auto) 1.8 [place] # (Auto) 0.8 Eos # (Auto) 0.2 Baso # (Auto) 0.0 WBC Differential . Differential Comment Auto diff final Sodium Potassium Chloride Carbon Dioxide Anion Gap BUN Creatinine Estimated GFR POC Glucose 112 H Random Glucose Calcium Total Bilirubin AST ALT Alkaline Phosphatase Troponin I Total Protein Albumin Urine Color Urine Clarity Urine pH Ur Specific [place] Urine Protein Urine Glucose (UA) Urine Ketones Urine Occult Blood Urine Nitrate Urine Bilirubin Urine Urobilinogen Ur Leukocyte Esterase Ur Squamous Epith Cells Micro UA Comment Ur Microscopic Review Urine Culture Comments Urine Opiates Screen Ur Barbiturates Screen Ur Amphetamines Screen U Benzodiazepines Scrn Urine Cocaine Screen U Cannabinoids Screen - Impressions ITS Impressions Chest X-Ray 01/09/18 14:12 CONCLUSION: No acute cardiopulmonary disease. Head CT 01/09/18 14:12 CONCLUSION: 1. No acute hemorrhage or mass effect. 2. Mild mucosal thickening in the right maxillary sinus. . Discharge Plan - Discharge Disposition Patient Disposition: 01 Discharge Home - Discharge Condition Condition: Stable - Discharge Order Discharge Orders: Discharge Order (Routine); Ordered 01/10/18 Ordered By: Corinne Lord - Physicians Team Primary Care Provider: UNKNOWN, Attending Provider: Rufino Johnson
[2018-01-10] MEDS: Lisinopril 5 MG Tablet PO SCH (12:02)
--- NOTE | 2018-01-10 19:54 | ECG ---
Date Performed: 01/09/2018 Time Performed: 14:05:18 PTAGE: 52 years EKG: Sinus rhythm WITH SHORT WA INTERVAL INCOMPLETE RIGHT BUNDLE BRANCH BLOCK BORDERLINE ECG NO PREVIOUS TRACING DOCTOR: Fabian Lee Interpretating Date/Time 01/10/2018 19:53:06
[2018-01-11] MEDS ORDERED: amLODIPine 5 MG Tablet PO SCH (09:00)
== END 2018-01-10 13:04 | disposition home or self-care (01) ==
LOC: NEPC 13:35 → NEDA 13:35 → NEPHCDU 19:57
PROVIDERS: ADMIT Family Medicine; ATTEND Family Medicine
DX: I10 Essential (primary) hypertension; F12.90 Cannabis use, unspecified, uncomplicated; F17.210 Nicotine dependence, cigarettes, uncomplicated; I16.1 Hypertensive emergency; R42 Dizziness and giddiness; R79.1 Abnormal coagulation profile